=== PATIENT | female | born 1970 | race Caucasian/White ===

== ENCOUNTER 2023-06-08 12:01 | Emergency (ER) | payer OTHER, SELFPAY ==
[2023-06-08 12:03] VITALS: BP 170/91
[2023-06-08 12:30] VITALS: BMI 34.1
--- NOTE | 2023-06-08 12:56 | ED.GENMED ---
History of Present Illness
General
Chief Complaint: Ear Problem
Source: patient
Exam Limitations: none
Time Seen by Provider: 06/08/23 12:25
Nursing documentation reviewed up to this point in time: agreed with
Travel History
Have you had any contact with someone who has COVID-19?: No
Do you have any symptoms of coronavirus? Fever > 100 degrees, chills, cough, shortness of breath, sore throat, loss of taste or smell, muscle aches, or headache?: No
History of Present Illness
History of Present Illness:
pt is a 53 y/o F with h/o previous ear infections
here with left ear pain radiating to left cheek/jaw region the past 3 days
pt says she has had a little nasal congestion bu tnot signfiicant
4 day juan was at the [employer] and they accidetnally got water in he rleft ear. she is prone to ear infections so when she got home she tried using hairpiece stylist to blow warm air to dry it out. pt says that she started having some pressure in the
left ear which turend into pain and some trouble hearing. pt asys her equilibrium is off slightly
but then today feels much greater pain into her jaw which is typical when she has had infectio in the past
she has never seen ENT
has had a TM perf from barotrauma previously
no drainage from ear, fever, chilsl, redness/swelling to the ear
not diabetic
Past History
Past History
ED Past Medical History: Psychiatric
ED Past Surgical History:
Patient has exhibited threatening behavior?: No
PSI?: No
Social History
Tobacco: Non-smoker
Alcohol: Occasional
Drug: None
Personal:
Living: with family
Employment: Employed
Family History
Family History: Other (Noncontributory)
Review of Systems
Review of Systems
Allergies reviewed?: Yes
All Other Systems: Not applicable
Phy Exam
Physical Exam
Physical Exam:
GENERAL: Alert , in no apparent distress
EYE: pupils equal and reactive
NECK: Supple
ENT: left auricle normal inspection
tender tragus and with auricle movement
tender mastoid, no erythema/swelling
very swollen canal, slight erythema
sliver of TM appears nonerythematous
no eviduence of drainage in the canal but difficult to visualize
CARDIAC: Regular rate and rhythm, no edema
LUNGS: Clear breath sounds bilaterally, no acute respiratory distress, no wheezes/rales/rhonchi, occ cough
ABDOMEN: Soft, without focal tenderness, no r/g, no cvat, normal bowel sounds
NEUROLOGICAL: Alert and oriented, no focal neuro deficits
SKIN: Warm and dry, skin intact.
MUSCULOSKELETAL: No edema, well perfused.
PSYCH: Normal and appropriate interaction.
Course
Orders/Labs/Results
Orders:
Orders
06/08/23 12:49
Ketorolac [Toradol] 30 mg IV NOW STA
06/08/23 13:13
Complete Blood Count/With Diff Urgent
Comprehensive Metabolic Panel Urgent
06/08/23 13:19
CT Head W/o Iv Contrast Urgent
Comment:
Reason For Exam: eval for mastoiditis
06/08/23 14:00
Ofloxacin [Ocuflox] See Dose Instructions OTIC DAILY
06/08/23 14:07
Ciprofloxacin HCl [Cipro] 4 dropperett OTIC NOW STA
Abnormal Lab Results
06/08/23
13:13
Absolute Monos (auto) 0.9 H 10^3/uL
(0.1-0.6)
Monocytes % 10.8 H %
(1.7-9.3)
Creatinine 0.5 L mg/dL
(0.6-1.0)
Glucose 112 H mg/dl
(70-99)
06/08/23 13:13
06/08/23 13:13
Vital Signs
Initial and Last Documented VS:
Initial Vital Signs
Temp Pulse Resp BP Pulse Ox
98.2 F 98 20 170/91 99
06/08/23 12:03 06/08/23 12:03 06/08/23 12:03 06/08/23 12:03 06/08/23 12:03
Last Documented Vital Signs
Temp Pulse Resp BP Pulse Ox
98.2 F 86 18 156/93 98
06/08/23 12:03 06/08/23 14:38 06/08/23 14:38 06/08/23 14:38 06/08/23 14:38
MDM/Problems Addressed
Differential Diagnosis Includes:
om, mastoiditis
MDM/Problems Addressed:
53 y/o F with h/o OE int he past
not dm
here with left ear pain into left jaw for a few days
ssy feels similar to previous OE
got water in her ear prior to this pain starting
has tenderness to mastoid without overlying erythema
some small ant cervical chain MALENA mild tender
opening jaw normal
no parotid swelling
era canal almost swollen shut completely, no drainage
can hear but diminished
wbc normal
ct shows no obvious mastoid involvement
will treat with ear wick and ciprodex drops
f/u ent encouraged.
*Critical Care Note
Total Time (30-74mins, 75-104mins- exclusive of procedures): Not Applicable
ED Attending Note
-
Portions of this chart may have been created with voice recognition software.� Occasional wrong word or��sound alike� substitutions may have occurred due to the inherent limitations of voice recognition software.
Discharge Plan
Departure
Patient Disposition: Home (Routine Discharge)
Date of Disposition: 06/08/23
Time of Disposition: 14:07
Patient with high blood pressure during this ER visit?: No
Condition: Fair
Covid-19: Not Applicable
Discharge Problem:
Acute Otitis Externa
Instructions: Outer Ear Infection (DC)
Prescriptions:
New
ciprofloxacin-dexamethasone 0.3-0.1 % drops,suspension
4 drp otic (ear) BID 7 Days Qty: 7.5 0RF
hydrocodone-acetaminophen 5-325 mg tablet
1 tab PO BID PRN (Reason: Pain) Qty: 5 0RF
No Action
multivitamin 1 EACH tablet
1 tab PO DAILY
ibuprofen 200 mg Tablet
400 mg PO Q6H PRN (Reason: MILD PAIN)
magnesium 250 mg Tablet
250 mg PO DAILY
oxycodone 5 mg tablet
5 mg PO Q4HPRN PRN (Reason: breakthrough/severe pain) Qty: 15 0RF
Referrals:
Rita Gupta PA [Family Provider] -
Niranjan Moore MD [Active] - Follow up in 5-7 days (ent)
Activity Restrictions/Additional Instructions:
YOU HAVE AN OUTER EAR INFECTION
USE THE EAR DROPS DIRECTED
THE ONE I PRESCRIBED AND SENT TO YOUR PHARMACY HAS A STEROID IN IT TO HELP WITH THE SWELLING
YOU CAN USE THIS ONE INSTEAD WHEN YOU PICK IT UP
MOTRIN EVERY 8HOURS FOR PAIN NEEDED
TYLENOL EVERY 6 HOURS FOR PAIN
FOLLOW UP WITH ENT
RETURN FOR: BLEEDING FROM EAR, SEVERE PAIN, EAR SWELLING, OR ANY CONCERNS.
Interventions
Interventions:
*Risk Screen - Suicide Last Done: 06/08/23 12:31
*General Assessment Last Done: 06/08/23 12:31
*Neglect/Abuse Screening Last Done: 06/08/23 12:31
ED- Fall Risk Assessment Last Done: 06/08/23 15:01
*Nursing Disposition Last Done: 06/08/23 15:01
Discharge Date and Time
Discharge Date/Time: 06/08/23 15:01
[2023-06-08] MEDS: TORADOL 30 MG IV (13:09)
[2023-06-08 13:19] LABS: % Basophils 0.5 % (0-2); % Eosinophils 3.4 % (0-6); % Immature Granulocytes 0.1 % (0-0.5); % Lymphocytes 25.2 % (20.5-51.1); % Monocytes 10.8 % (1.7-9.3); Absolute Eosinophils 0.3 10^3/uL (0-0.7); Absolute Monocytes 0.9 10^3/uL (0.1-0.6); Absolute Neutrophils 4.8 10^3/uL (1.4-6.5); Hematocrit 39.8 % (37.0-47.0); Hemoglobin 13.9 g/dL (12.0-16.0); Mean Corp Hgb Conc. 34.9 g/dL (33.0-37.0); Mean Corpuscular Hgb 30.4 pg (27.0-31.0); Mean Corpuscular Volume 87.1 fL (81.0-99.0); Mean Platelet Volume 8.3 fL (7.4-10.4); Nucleated Red Blood Cells % 0 %; Platelet Count 349 10^3/uL (130-400); Red Blood Cell Count 4.57 10^6/uL (4.20-5.40); Red Cell Dist. Width 12.9 % (11.5-14.5)
[2023-06-08 13:42] LABS: ALT (SGPT) 17 U/L (0-35); AST (SGOT) 21 U/L (14-36); Albumin 3.9 g/dl (3.5-5.0); Alkaline Phosphatase 50 U/L (38-126); Blood Urea Nitrogen 11 mg/dl (7-17); Calcium 9.5 mg/dl (8.4-10.2); Carbon Dioxide 26 mmol/L (22-30); Chloride 103 mmol/L (98-107); Estimated Creatinine Clearance 124 ml/min; Glucose 112 mg/dl (70-99); Potassium 3.9 mmol/L (3.5-5.1); Sodium 137 mmol/L (135-145); Total Bilirubin 0.7 mg/dl (0.2-1.3); Total Protein 7.1 g/dl (6.3-8.2); eGFR > 60.00
[2023-06-08 14:38] VITALS: BP 156/93
[2023-06-08] MEDS: CIPRO 4 DROPPERETT OTIC (14:49)
== END 2023-06-08 15:01 | disposition home or self-care (01) ==
LOC: EMR 12:01
PROVIDERS: Physician Assistant; EMERGENCY PHYSICIAN Emergency Medicine; FAMILY PHYSICIAN Physician Assistant Medical
DX: H60.502 Unspecified acute noninfective otitis externa, left ear (principal)
CPT/HCPCS: 99284; 96374; 70450; 80053; 85025

== ENCOUNTER → 2023-08-02 13:46 | Outpatient (REF) | payer OTHER, SELFPAY | LOC: WDC 13:46 | PROVIDERS: ATTENDING PHYSICIAN Obstetrics & Gynecology Gynecology; FAMILY PHYSICIAN Physician Assistant Medical | DX: Z12.31 Encounter for screening mammogram for malignant neoplasm of breast (principal) | CPT/HCPCS: 77063; 77067 ==

== ENCOUNTER → 2023-09-06 06:30 | Day surgery (SDC) | payer OTHER, SELFPAY | LOC: GI 06:30 | PROVIDERS: ATTENDING PHYSICIAN Internal Medicine Gastroenterology | DX: Z12.11 Encounter for screening for malignant neoplasm of colon (principal); K63.89 Other specified diseases of intestine; K57.30 Diverticulosis of large intestine without perforation or abscess without bleeding; K64.8 Other hemorrhoids | CPT/HCPCS: 45380; 88305 ==

== ENCOUNTER 2023-09-08 07:21 | Emergency (ER) | payer OTHER, SELFPAY ==
[2023-09-08 07:24] VITALS: BP 135/87
--- NOTE | 2023-09-08 07:43 | ED.GENMED ---
History of Present Illness
General
Chief Complaint: Musculo-Skeletal Complaint
Time Seen by Provider: 09/08/23 07:35
Travel History
Have you had any contact with someone who has COVID-19?: No
Do you have any symptoms of coronavirus? Fever > 100 degrees, chills, cough, shortness of breath, sore throat, loss of taste or smell, muscle aches, or headache?: No
History of Present Illness
History of Present Illness:
53-year-old female with history of recently diagnosed hypertension presents to the emergency department for evaluation of intermittent bouts of left scapular pain rating to the left arm that been ongoing for the past 2 weeks. She had an episode of
lightheadedness associated with this pain yesterday. Denies any pleuritic pain. No exertional nature to the pain. Denies any clear provoking or palliating factors. No fevers, chills, night sweats, coughing, URI symptoms, abdominal pain, nausea,
or vomiting.
Past History
Past History
ED Past Medical History: Psychiatric
ED Past Surgical History:
Patient has exhibited threatening behavior?: No
PSI?: No
Social History
Tobacco: Non-smoker
Alcohol: Occasional
Drug: None
Personal:
Living: with family
Employment: Employed
Family History
Family History: Other (Noncontributory)
Review of Systems
Review of Systems
Allergies reviewed?: Yes
All Other Systems: ROS reviewed and negative except as documented in HPI and ROS
Phy Exam
Physical Exam
Physical Exam:
GEN: Well appearing, NAD, WDWN
Eyes: PERRLA, EOMs intact, no scleral icterus
HENT: NCAT, oral mucosa moist
Lungs: CTAB, no wheezes, rales, rhonchi, normal chest wall excursion
Cardiac: RRR, no M/R/G, no peripheral edema. Radial pulses 2+ bilat
Abdomen: S, NT, ND, NABS, no masses or hepatosplenomegaly
Neuro: AO x 3, no focal deficits to BUE
MSK: No gross deformity or ecchymosis. No edema. No digital clubbing
Skin: No rashes, petechiae. Normal color, no pallor or jaundice.
Psych: Calm, cooperative, proper hygiene
Course
Orders/Labs/Results
Orders:
Orders
09/08/23 07:22
Electrocardiogram (*1) Urgent
Reason for Study: Chest Pain
EKG- Treatment ONCE
09/08/23 07:43
CR Chest - 2 Views Urgent
Comment:
Reason For Exam: L scapular pain
09/08/23 07:54
Complete Blood Count/With Diff Urgent
Comprehensive Metabolic Panel Urgent
Troponin I Urgent
09/08/23 08:44
Ketorolac [Toradol] 15 mg IV NOW STA
Abnormal Lab Results
09/08/23
07:54
Monocytes % 9.7 H %
(1.7-9.3)
Glucose 112 H mg/dl
(70-99)
09/08/23 07:54
09/08/23 07:54
Vital Signs
Initial and Last Documented VS:
Initial Vital Signs
Temp Pulse Resp BP Pulse Ox
98.3 F 70 20 135/87 100
09/08/23 07:24 09/08/23 07:24 09/08/23 07:24 09/08/23 07:24 09/08/23 07:24
Last Documented Vital Signs
Temp Pulse Resp BP Pulse Ox
98.3 F 74 16 126/75 98
09/08/23 07:24 09/08/23 08:58 09/08/23 08:58 09/08/23 08:58 09/08/23 08:58
MDM/Problems Addressed
MDM/Problems Addressed:
Patient's workup reassuring. No evidence for acute coronary syndrome, no shortness of breath or pleuritic chest pain concerning for pulmonary embolism. Likely cervicogenic radiculopathy, will prescribe NSAIDs, discussed importance of primary care
follow-up if symptoms worsen
Comment
Comment:
Initial EKG independently interpreted by me shows a normal sinus rhythm at a rate of 68 with a first-degree AV block, no ST changes concerning for ischemia, QTc of 435
*Critical Care Note
Total Time (30-74mins, 75-104mins- exclusive of procedures): Not Applicable
ED Attending Note
-
Portions of this chart may have been created with voice recognition software.� Occasional wrong word or��sound alike� substitutions may have occurred due to the inherent limitations of voice recognition software.
Discharge Plan
Departure
Patient Disposition: Home (Routine Discharge)
Date of Disposition: 09/08/23
Time of Disposition: 08:44
Patient with high blood pressure during this ER visit?: No
Discharge Problem:
Cervical radiculopathy
Instructions: Radiculopathy (DC)
Prescriptions:
New
diclofenac sodium 75 mg tablet,delayed release (DR/EC)
75 mg PO BID 7 Days Qty: 14 0RF
No Action
multivitamin 1 EACH tablet
1 tab PO DAILY
ibuprofen 200 mg Tablet
400 mg PO Q6H PRN (Reason: MILD PAIN)
magnesium 250 mg Tablet
250 mg PO DAILY
oxycodone 5 mg tablet
5 mg PO Q4HPRN PRN (Reason: breakthrough/severe pain) Qty: 15 0RF
ciprofloxacin-dexamethasone 0.3-0.1 % drops,suspension
4 drp otic (ear) BID 7 Days Qty: 7.5 0RF
hydrocodone-acetaminophen 5-325 mg tablet
1 tab PO BID PRN (Reason: Pain) Qty: 5 0RF
Referrals:
Rita Gupta PA [Family Provider] -
Interventions
Interventions:
*Risk Screen - Suicide Last Done: 09/08/23 07:24
*General Assessment Last Done: 09/08/23 07:24
*Neglect/Abuse Screening Last Done: 09/08/23 07:24
ED- Fall Risk Assessment Last Done: 09/08/23 08:19
*ED COVID-19 Vaccine History Last Done: 09/08/23 08:19
*Nursing Disposition Last Done: 09/08/23 08:59
ED-Musculoskeletal Assessment Last Done: 09/08/23 08:18
Discharge Date and Time
Discharge Date/Time: 09/08/23 09:00
Print Language: LUX[place]
[2023-09-08 08:15] LABS: % Basophils 0.5 % (0-2); % Eosinophils 5.4 % (0-6); % Immature Granulocytes 0.2 % (0-0.5); % Lymphocytes 27.3 % (20.5-51.1); % Monocytes 9.7 % (1.7-9.3); % Neutrophils 56.9 % (42.2-75.2); Absolute Eosinophils 0.3 10^3/uL (0-0.7); Absolute Lymphocytes 1.6 10^3/uL (1.2-3.4); Absolute Monocytes 0.6 10^3/uL (0.1-0.6); Absolute Neutrophils 3.4 10^3/uL (1.4-6.5); Hematocrit 38.1 % (37.0-47.0); Hemoglobin 13.4 g/dL (12.0-16.0); Mean Corp Hgb Conc. 35.2 g/dL (33.0-37.0); Mean Corpuscular Hgb 30.2 pg (27.0-31.0); Mean Platelet Volume 8.7 fL (7.4-10.4); Nucleated Red Blood Cells % 0 %; Platelet Count 346 10^3/uL (130-400); Red Blood Cell Count 4.43 10^6/uL (4.20-5.40); Red Cell Dist. Width 12.2 % (11.5-14.5); White Blood Cell Count 5.9 10^3/uL (4.8-10.8)
[2023-09-08 08:26] LABS: ALT (SGPT) 19 U/L (0-35); AST (SGOT) 23 U/L (14-36); Albumin 4.3 g/dl (3.5-5.0); Alkaline Phosphatase 58 U/L (38-126); Blood Urea Nitrogen 14 mg/dl (7-17); Calcium 9.9 mg/dl (8.4-10.2); Carbon Dioxide 24 mmol/L (22-30); Chloride 107 mmol/L (98-107); Glucose 112 mg/dl (70-99); Potassium 3.9 mmol/L (3.5-5.1); Sodium 142 mmol/L (135-145); Total Bilirubin 0.3 mg/dl (0.2-1.3); Total Protein 7.4 g/dl (6.3-8.2); eGFR > 60.00
[2023-09-08 08:37] LABS: Troponin I < 0.012 ng/ml
[2023-09-08] MEDS: TORADOL 15 MG IV (08:49)
[2023-09-08 08:58] VITALS: BP 126/75
== END 2023-09-08 09:00 | disposition home or self-care (01) ==
LOC: EMR 07:21
PROVIDERS: Physician Assistant; EMERGENCY PHYSICIAN Emergency Medicine; FAMILY PHYSICIAN Physician Assistant Medical
DX: M54.12 Radiculopathy, cervical region (principal); I10 Essential (primary) hypertension
CPT/HCPCS: 99285; 96374; 71046; 80053; 84484; 85025; 93005

== ENCOUNTER → 2023-11-25 17:50 | Outpatient (REF) | payer OTHER, SELFPAY | LOC: RAD 17:50 | PROVIDERS: ATTENDING PHYSICIAN Physician Assistant Medical | DX: M54.12 Radiculopathy, cervical region (principal) | CPT/HCPCS: 72052 ==

== ENCOUNTER → 2024-08-07 06:41 | Outpatient (REF) | payer OTHER, SELFPAY | LOC: WDC 06:41 | PROVIDERS: ATTENDING PHYSICIAN Obstetrics & Gynecology Gynecology; FAMILY PHYSICIAN Physician Assistant Medical | DX: Z12.31 Encounter for screening mammogram for malignant neoplasm of breast (principal); Z12.39 Encounter for other screening for malignant neoplasm of breast | CPT/HCPCS: 77063; 77067 ==

== ENCOUNTER 2024-09-26 07:29 | Emergency (ER) | payer OTHER, SELFPAY ==
[2024-09-26 07:36] VITALS: BP 134/77
--- NOTE | 2024-09-26 09:37 | ED.GENMED ---
History of Present Illness
General
Chief Complaint: Ear Problem
Time Seen by Provider: 09/26/24 09:25
History of Present Illness
History of Present Illness:
Patient is a 54-year-old female with past medical history of hypertension here today for evaluation of approximately 2 days of right-sided ear pain. No fevers. No symptoms contralaterally. No URI symptoms. No recent air travel. No recent
swimming pools or hot tubs. She does report prior to symptom onset she was at the [facility] and does believe she got water in her ear. She has had a prior history of ear infections requiring wick placement.
Past History
Past History
ED Past Medical History: Psychiatric
ED Past Surgical History:
Patient has exhibited threatening behavior?: No
PSI?: No
Social History
Tobacco: Non-smoker
Alcohol: Occasional
Drug: None
Personal:
Living: with family
Employment: Employed
Family History
Family History: Other (Noncontributory)
Review of Systems
Review of Systems
All Other Systems: ROS reviewed and negative except as documented in HPI and ROS
Phy Exam
Physical Exam
Physical Exam:
GENERAL: Alert , in no apparent distress
EYE: pupils equal and reactive
NECK: Supple
ENT: o/p clr, mmm. Moderate amount of right external auditory canal edema consistent with acute right-sided otitis externa. There is no findings to suggest malignant otitis externa or mastoiditis. Right TM with small window but appears within
normal limits
CARDIAC: Regular rate and rhythm .
LUNGS: Clear breath sounds bilaterally, no acute respiratory distress, no wheezes/rales/rhonchi
NEUROLOGICAL: Alert and oriented, no focal neuro deficits
SKIN: Warm and dry, skin intact.
MUSCULOSKELETAL: No edema, well perfused.
PSYCH: Normal and appropriate interaction.
Course
Orders/Labs/Results
Orders:
Orders
09/26/24 09:39
Neomycin/Polymyxin/Hc [Cortisporin Otic Suspension] See Dose Instructions OTIC NOW STA
09/26/24 10:09
Ibuprofen [Motrin] 600 mg PO NOW STA
09/26/24 10:16
Ibuprofen [Motrin] 600 mg .ROUTE .STK-MED ONE
Vital Signs
Initial and Last Documented VS:
Initial Vital Signs
Temp Pulse Resp BP Pulse Ox
98.0 F 70 16 134/77 98
09/26/24 07:36 09/26/24 07:36 09/26/24 07:36 09/26/24 07:36 09/26/24 07:36
Last Documented Vital Signs
Temp Pulse Resp BP Pulse Ox
98.0 F 70 16 134/77 98
09/26/24 07:36 09/26/24 07:36 09/26/24 07:36 09/26/24 07:36 09/26/24 07:36
MDM/Problems Addressed
Differential Diagnosis Includes:
Patient is a 54-year-old female with past medical history of hypertension here today for evaluation of approximately 2 days of right-sided ear pain. Overall, patient appears well. Vitals grossly within normal limits. Physical examination described
above. On examination the patient is noted to have a moderate amount of right external auditory canal edema consistent with acute right-sided otitis externa. There is no findings to suggest malignant otitis externa or mastoiditis. Right TM with
small window but appears within normal limits. Will place a wick given significant canal edema and initiate antibiotic therapy. Will provide topical and oral therapy. Recommend supportive measures and close follow-up. All questions answered.
Stable for discharge.
*Critical Care Note
Total Time (30-74mins, 75-104mins- exclusive of procedures): Not Applicable
ED Attending Note
-
Portions of this chart may have been created with voice recognition software.� Occasional wrong word or��sound alike� substitutions may have occurred due to the inherent limitations of voice recognition software.
Discharge Plan
Departure
Patient Disposition: Home (Routine Discharge)
Date of Disposition: 09/26/24
Time of Disposition: 10:43
Patient with high blood pressure during this ER visit?: No
Condition: Good
Covid-19: Not Applicable
Discharge Problem:
Acute infective otitis externa of right ear
Instructions: Outer ear infection - ED discharge instructions
Prescriptions:
New
amoxicillin-pot clavulanate 875-125 mg tablet
1 tab PO Q12H 7 Days Qty: 14 0RF
No Action
multivitamin 1 EACH tablet
1 tab PO DAILY
ibuprofen 200 mg Tablet
400 mg PO Q6H PRN (Reason: MILD PAIN)
magnesium 250 mg Tablet
250 mg PO DAILY
oxycodone 5 mg tablet
5 mg PO Q4HPRN PRN (Reason: breakthrough/severe pain) Qty: 15 0RF
ciprofloxacin-dexamethasone 0.3-0.1 % drops,suspension
4 drp otic (ear) BID 7 Days Qty: 7.5 0RF
hydrocodone-acetaminophen 5-325 mg tablet
1 tab PO BID PRN (Reason: Pain) Qty: 5 0RF
diclofenac sodium 75 mg tablet,delayed release (DR/EC)
75 mg PO BID 7 Days Qty: 14 0RF
Referrals:
Rita Gupta PA [Family Provider, Family Practice] - Follow up in 2-3 days
Activity Restrictions/Additional Instructions:
You were seen today for evaluation of a right sided ear infection.
Begin the topical and oral antibiotics as directed. Keep the wick in place.
Follow-up with your doctor within the next 2 to 3 days for close reevaluation.
Return for any new, worsening, or concerning symptoms.
Interventions
Interventions:
*Risk Screen - Suicide Last Done: 09/26/24 07:36
*General Assessment Last Done: 09/26/24 08:48
*Neglect/Abuse Screening Last Done: 09/26/24 07:36
*ED COVID-19 Vaccine History Last Done: 09/26/24 08:48
Discharge Date and Time
Print Language: [place]
[2024-09-26] MEDS: CORTISPORIN OTIC SUSPENSION 4 DROP OTIC (10:00)
[2024-09-26] MEDS: MOTRIN 600 MG PO (10:17)
== END 2024-09-26 10:52 | disposition home or self-care (01) ==
LOC: EMR 07:29
PROVIDERS: EMERGENCY PHYSICIAN Emergency Medicine; FAMILY PHYSICIAN Physician Assistant Medical
DX: H60.391 Other infective otitis externa, right ear (principal); I10 Essential (primary) hypertension; Z88.7 Allergy status to serum and vaccine
CPT/HCPCS: 99283